=== PATIENT | female | born 1995 | race Caucasian/White ===

== ENCOUNTER 2016-11-09 17:21 | Emergency (ER) | payer OTHER ==
--- NOTE | ~2016-11-09 | US106 ---
[facility] A Service of [facility] RADIOLOGY TEXT RESULTS PATIENT: JOHN MORALES LOCATION: [facility] : [birth year] UNIT #: [id number] AGE: [address]: DEVIN ESPINOZA SEX: F ORDER DR: [id number] [facility] [address] [place], [place] [address] [id number] E MR#: [id number] Acc #: [id number] NAME: JOHN MORALES : 1995 SEX: F STUDY DATE/TIME: 11/09/2016 18:14 UNIT: [facility] ROOM: STUDY DESCRIPTION: US Preg Uterus Transvaginal Attending Physician: Devin Espinoza Aprn Ordering Physician: Devin Espinoza Aprn [facility] RE[facility] This report is preliminary unless electronic signature is present EXAM Pelvic sonogram HISTORY 21-year-old female with pressure in lower pelvic region times 3 days. LMP 10/02/2016. FINDINGS Real-time examination was performed utilizing both transabdominal and endovaginal scanning. Examination demonstrates a normal-appearing nongravid uterus measuring 6.5 x 5 x 6 cm. Endometrium appears normal with a double-thickness measurement of 2.4 cm. Both ovaries are visualized and are unremarkable. There is a trace amount of free fluid. No adnexal masses. Dominant follicle seen in the right ovary. IMPRESSION Normal pelvic sonogram. No evidence of an IUP or complex adnexal mass. Dominant follicle noted in the right ovary. Trace amount of free fluid in the cul-de-sac, nonspecific. Dictated by... Mayela Nichols M.D. THIS IS AN ELECTRONICALLY VERIFIED REPORT Mayela Nichols M.D. at 11/10/2016 2:02 PM HANNAH/medhat TD: 11/09/2016 21:45 JOB #: [id number] MEDICAL IMAGING REPORT Page 1 of 1 COPY
[~2016-11-09 17:21] MED LIST: ALBUTEROL17 GM INH; AMOXICILLIN500 M1 PO; AMOXICILLIN875 MG PO; AUGMENTIN875 M1 PO; BACTRIM DS TABL1 TA1 PO; BENTYL20 M1 PO; BENZONATATE PO; BIRTH CONTROL PILL; FLEXERIL10 M1 PO; MOTRIN600 M2 PO; NAPROSYN500 MG; NO MEDICATIONS; PRENATAL1 TA1; PRENATAL1 TA1 PO; SEASONIQUE 0.11 EACH PO; ZOFRAN ODT4 MG PO; ZOLOFT PO
[2016-11-09 17:53] LABS: CULTURE INDICATED? YES; URINE APPEARANCE CLOUDY; URINE BACTERIA AUWI 4+ (NEGATIVE); URINE BILIRUBIN NEG (NEG); URINE BLOOD NEG (NEG); URINE COLOR YELLOW; URINE GLUCOSE NEG (NEG); URINE KETONE TRACE (NEG); URINE LEUKOCYTE ESTERASE TRACE (NEG); URINE NITRATE POS (NEG); URINE PROTEIN NEG (NEG); URINE SOURCE CLEAN CATCH; URINE SPECIFIC GRAVITY 1.028 (1.003-1.035); URINE SQUAMOUS EPITHELIAL CELL MOD /[HPF]
== END 2016-11-09 19:00 | disposition home or self-care (01) ==
LOC: CFTX 17:21
PROVIDERS: Nurse Practitioner Family
DX: O23.41 Unspecified infection of urinary tract in pregnancy, first trimester (principal); O99.331 Smoking (tobacco) complicating pregnancy, first trimester; F17.210 Nicotine dependence, cigarettes, uncomplicated
CPT/HCPCS: 76817; 81003; 84702; 84703; 87086; 87088; 87186; 99284